=== PATIENT | female | born 1995 | race Caucasian/White ===

== ENCOUNTER 2018-05-11 15:27 | Emergency (ER) | payer MEDICAID ==
[~2018-05-11] VITALS: Ht 160 cm; Wt 63.0 kg
[2018-05-11 15:32] VITALS: BP 141/93
[2018-05-11] MEDS ORDERED: LIDOcaine 1% w/epiNEPHrine 1:200,000 30ml vial IM ONE (16:10)
[2018-05-11] MEDS ORDERED: TETanus/Pertussis (Acell)/Diphther VAC/PF (Tdap-Adult) 0.5ml syringe IM ONE (16:10)
[2018-05-11] MEDS ORDERED: HYDR-4353 PO (17:52)
== END 2018-05-11 18:14 | disposition home or self-care (01) ==
LOC: ER 15:27
DX: S01.01XA Laceration without foreign body of scalp, initial encounter (principal); S09.8XXA Other specified injuries of head, initial encounter; Z88.1 Allergy status to other antibiotic agents; Z88.5 Allergy status to narcotic agent; W18.09XA Striking against other object with subsequent fall, initial encounter; Y93.89 Activity, other specified; Y92.89 Other specified places as the place of occurrence of the external cause; Y99.8 Other external cause status
CPT/HCPCS: 12004; 70450; 90471; 90715; 99283; J3490

== ENCOUNTER 2018-05-13 14:48 | Emergency (ER) | payer MEDICAID ==
[~2018-05-13] VITALS: Ht 160 cm; Wt 63.6 kg
[~2018-05-13 14:48] MED LIST: HYDR-4353 PO
[2018-05-13 15:04] VITALS: BP 140/102
== END 2018-05-13 15:36 | disposition home or self-care (01) ==
LOC: ER 14:49
DX: S01.01XD Laceration without foreign body of scalp, subsequent encounter (principal); Z88.1 Allergy status to other antibiotic agents; Z79.899 Other long term (current) drug therapy; W18.09XD Striking against other object with subsequent fall, subsequent encounter
CPT/HCPCS: 99281

== ENCOUNTER 2018-05-21 17:00 | Emergency (ER) | payer MEDICAID ==
[~2018-05-21] VITALS: Ht 160 cm; Wt 60.0 kg
[2018-05-21 17:09] VITALS: BP 116/72
== END 2018-05-21 17:39 | disposition home or self-care (01) ==
LOC: ER 17:01
DX: S01.01XD Laceration without foreign body of scalp, subsequent encounter (principal); Z88.1 Allergy status to other antibiotic agents; X58.XXXD Exposure to other specified factors, subsequent encounter
CPT/HCPCS: 99281

== ENCOUNTER 2021-04-23 23:54 | Emergency (ER) | payer MEDICAID ==
[~2021-04-23] VITALS: Ht 162.6 cm; Wt 68.2 kg
[2021-04-24] VITALS: BP 136/91
[2021-04-24] MEDS ORDERED: AMOX-117 PO (00:20)
[2021-04-24] MEDS ORDERED: amox tr/potassium clavulanate 875/125mg TAB PO ONE (00:25)
== END 2021-04-24 00:37 ==
LOC: ER 23:54
DX: T14.90XA Injury, unspecified, initial encounter (principal); K04.7 Periapical abscess without sinus; R68.84 Jaw pain; Z72.89 Other problems related to lifestyle; Z88.1 Allergy status to other antibiotic agents; Z79.2 Long term (current) use of antibiotics; V89.2XXA Person injured in unspecified motor-vehicle accident, traffic, initial encounter; Y93.89 Activity, other specified; Y92.89 Other specified places as the place of occurrence of the external cause; Y99.8 Other external cause status
CPT/HCPCS: 99283; 99284